=== PATIENT | female | born 2000 | race Caucasian/White ===

== ENCOUNTER 2023-08-06 17:26 | Emergency (ER) | payer OTHER ==
[2023-08-06 17:32] VITALS: RESP 20; BMI 27.3
[2023-08-06] MEDS ORDERED: ONDANSETRON 4 MG/2 ML VIAL ONE (18:38)
[2023-08-06] MEDS ORDERED: ACETAMINOPHEN INJECTION 100 ML IVPB ONE (18:38)
[2023-08-06 18:40] LABS: HEMATOCRIT 40.4 % (32.4-45.2); MCH 30.1 pg (25.7-33.7); MCHC 34.6 g/dl (32.0-36.0); MEAN CELL VOLUME 86.8 fl (80-96); MEAN PLT VOLUME 8.7 fl (7.5-11.1); PLATELET COUNT 229 10^3/uL (134-434); RBC 4.65 M/mm3 (3.60-5.2); RDW 12.7 % (11.6-15.6); WHITE BLOOD COUNT 7.9 K/mm3 (4.0-10.0)
[2023-08-06] MEDS: ONDANSETRON 4 MG/2 ML VIAL IVPUSH ONE (18:46)
[2023-08-06] MEDS: ACETAMINOPHEN 1000 MG/100 ML BAG IVPB ONE (18:46)
[2023-08-06] MEDS: SODIUM CHLORIDE 0.9% 500 ML INFUS.BAG IV ONE (18:46)
[2023-08-06 18:47] LABS: EPI CELLS >36 /uL (0-25.1); HYALINE CASTS 38 /uL (0-3.1); URINE APPEARANCE CLOUDY; URINE BACTERIA 3883 /uL (0-1359); URINE BILIRUBIN 2+ (NEGATIVE); URINE COLOR DK YELLOW; URINE GLUCOSE (UA) NEGATIVE (NEGATIVE); URINE KETONE 4+ (NEGATIVE); URINE LEUK ESTERASE TRACE (NEGATIVE); URINE NITRITE NEGATIVE (NEGATIVE); URINE PROTEIN 3+ (NEGATIVE); URINE WBC 221 /uL (0-25.8)
[2023-08-06 18:59] LABS: POTASSIUM 3.7 mmol/L (3.5-5.1)
[2023-08-06 19:02] LABS: CALCIUM 8.8 mg/dL (8.5-10.1)
[2023-08-06 19:03] LABS: ALBUMIN 3.2 g/dl (3.4-5.0); BLOOD UREA NITROGEN 10.6 mg/dL (7-18); MAGNESIUM 2.1 mg/dL (1.8-2.4)
[2023-08-06 19:06] LABS: CREATININE 0.7 mg/dL (0.55-1.3); PHOSPHOROUS 2.3 mg/dL (2.5-4.9)
[2023-08-06 19:07] LABS: BILIRUBIN,TOTAL 0.4 mg/dL (0.2-1); TOT PROT 6.9 g/dl (6.4-8.2)
[2023-08-06 19:41] LABS: PLATELET ESTIMATE NORMAL
[2023-08-06] MEDS ORDERED: KETOROLAC TROMETHAMINE 15 MG/ML VIAL ONE (20:01)
[2023-08-06] MEDS ORDERED: AMOX TR/POT CLAV 875MG/125MG TABLETS (FP) ONE ×2 (20:01)
[2023-08-06] MEDS: AMOX TR/POT CLAV 875MG/125MG TABLETS (FP) PO ONE (20:08)
[2023-08-06] MEDS: KETOROLAC TROMETHAMINE 15 MG/ML VIAL IVPUSH ONE (20:08)
[2023-08-06 20:28] VITALS: BP 98/49; PULSE 89; TEMP 98
== END 2023-08-06 21:08 | disposition home or self-care (01) ==
LOC: JER 17:26
PROC: 3E033NZ Introduction of Analgesics, Hypnotics, Sedatives into Peripheral Vein, Percutaneous Approach (ICD-10-PCS; principal; 2023-08-06)
PROC: 3E0333Z Introduction of Anti-inflammatory into Peripheral Vein, Percutaneous Approach (ICD-10-PCS; 2023-08-06)
PROC: 3E033GC Introduction of Other Therapeutic Substance into Peripheral Vein, Percutaneous Approach (ICD-10-PCS; 2023-08-06)
DX: K52.9 Noninfective gastroenteritis and colitis, unspecified (principal); N39.0 Urinary tract infection, site not specified; H66.92 Otitis media, unspecified, left ear; R11.10 Vomiting, unspecified; R10.9 Unspecified abdominal pain; Z20.822 Contact with and (suspected) exposure to COVID-19
CPT/HCPCS: 0241U-QW; 36415; 80053; 81003; 83690; 83735; 84100; 84703; 85025; 87086; 99284-25; J0131